=== PATIENT | female | born 1960 | race Caucasian/White ===

== ENCOUNTER → 2021-06-16 | Day surgery (SDC) | payer MEDICARE ==
[2021-06-16] VITALS (10 sets, daily range): BP systolic 150–171; BP diastolic 84–101
[~2021-06-16] VITALS: Ht 180.3 cm; Wt 68.5 kg
[~2021-06-16] MED LIST: ASPI-667 PO; ATOR20TA PO; CYCL10TA2 PO; FLUT1BLS3 INH; GABA100C7 PO; HEPARIN ONE; LOSA100T14 PO; MELO15TA24 PO; NS 1000ML 1,000 ML IV SCH; PHENERGAN PO ONE; SUBLIMAZE ONE; VALIUM PO ONE; VERSED ONE; XYLOCAINE ONE
--- NOTE | 2021-06-16 08:08 | DIREP ---
PROCEDURE:CHEST 2 VIEWS COMPARISON:None. INDICATIONS:PRE-OP FINDINGS: LUNGS/PLEURA:There is pulmonary hyperinflation consistent with underlying COPD. No focal consolidation. No pneumothorax. No effusions. VASCULATURE:Normal. Unremarkable pulmonary vasculature. CARDIAC:Normal. No cardiac silhouette abnormality or cardiomegaly. MEDIASTINUM:Normal. No visible mass or adenopathy. BONES:Normal. No fracture or visible bony lesion. OTHER:Negative. CONCLUSION:Lungs appear hyperinflated. No acute process is identified. Dictated by: Alberto Grant MD on 06/16/2021 at 08:06 AM
--- NOTE | 2021-06-16 10:30 | [facility] ---
DATE OF SERVICE: 06/16/2021 DICTATOR NAME: Don Wellington MD HEART CATHETERIZATION REPORT IDENTIFICATION: A 60-year-old female. PRECATHETERIZATION DIAGNOSES: Abnormal myocardial perfusion scan, chronic obstructive pulmonary disease, hypertension, hypertensive heart disease, left ventricular systolic dysfunction, 35-40% ejection fraction, mitral regurgitation, assess for coronary artery disease. POSTCATHETERIZATION DIAGNOSES: Left main is patent, type 3 left anterior descending with a proximal 30% luminal irregularity. The left anterior descending wraps around the apex and is a very large vessel. No flow obstruction is documented. Circumflex small vessel appears to be patent. Codominant right coronary artery and the mid right coronary artery eccentric 50-55% lesion, non-flow obstructive. Distal vessel with good RUSSELL 3 flow. Left ventricle is mildly dilated with good wall contractility, no mitral regurgitation, ejection fraction of 50%. ANESTHESIA: 2% lidocaine. PREOPERATIVE MEDICATIONS: Phenergan 50 mg p.o., Valium 2.5 mg p.o., Versed 2 mg IV, fentanyl 25 mcg IV. ANTICOAGULATION: Heparin 2000 units intra-arterially, 2000 units in the flush solution, 1000 units in the dye solution. DYE USED: Omnipaque. Total amount is 70 mL. CATHETERS: [id number], JR4 6-Emirati, 6 Emirati angled pigtail catheter. ARTERIAL TIME: 7 minutes. FLUOROSCOPY TIME: 1.8 minutes. PROCEDURES: Left heart catheterization, bilateral selective coronary arteriography, left ventriculography by right femoral Kaylene approach. DESCRIPTION OF PROCEDURE: Under local anesthesia, right femoral artery was punctured percutaneously by arterial needle, guide wire passed in right femoral artery, 6-Emirati Cordis sheath introduced, side port of the sheath used for femoral arterial pressure monitoring. Sheath anchored with suture. Left Kaylene catheter introduced over guide wire into ascending aorta left coronary artery cannulated and left coronary angiography performed in UZBEK and RYAN projections with craniocaudal applications to visualize all branches. Left catheter exchanged for right coronary catheter and right coronary angiography performed in UZBEK and RYAN. This catheter exchanged for 6-Emirati pigtail catheter and catheter crossed the aortic valve and left ventricular LVEDP measured and LV gram performed in 30 degrees RYAN view with 30 mL Omnipaque dye and panning of descending aorta attempted. Patient tolerated procedure well. No complications of procedure. Angio-Seal deployed for hemostasis. LVEDP is about 8-10 mm, LV pressure is 158/10. Femoral artery pressure 148/84 with a mean of 100. No gradient across the aorta on pullback of the central catheter. FINAL CONCLUSION: Non-flow obstructive coronary artery disease with 30% luminal irregularity in the LAD with mid RCA 50-55% stenosis and intact LV systolic function and dominant LAD and RCA. At the present time, risk factor modification and optimization of medical therapy. Don Wellington MD DR: RANI TID: [id number] RECEIPT: [id number]
== END | disposition home or self-care (01) ==
LOC: SURG 07:48
PROVIDERS: ATTEND Specialist
DX: I25.110 Atherosclerotic heart disease of native coronary artery with unstable angina pectoris (principal); I11.0 Hypertensive heart disease with heart failure; I50.32 Chronic diastolic (congestive) heart failure; I34.0 Nonrheumatic mitral (valve) insufficiency; J44.9 Chronic obstructive pulmonary disease, unspecified; I73.9 Peripheral vascular disease, unspecified; F17.210 Nicotine dependence, cigarettes, uncomplicated; Z79.01 Long term (current) use of anticoagulants; Z79.899 Other long term (current) drug therapy; Z99.81 Dependence on supplemental oxygen; Z82.49 Family history of ischemic heart disease and other diseases of the circulatory system; Z80.9 Family history of malignant neoplasm, unspecified; Z98.890 Other specified postprocedural states; Z90.710 Acquired absence of both cervix and uterus
CPT/HCPCS: 36415; 71046; 85610; 85730; 93458; 99152; C1760; C1894 ×3; J1644 ×2; J2001; J2250; J3010; Q9967

== ENCOUNTER → 2021-10-12 | Outpatient (CLI) | payer MEDICARE ==
[~2021-10-12] MED LIST changes: +CYCL10TA19 PO; -CYCL10TA2 PO; -HEPARIN ONE; -NS 1000ML 1,000 ML IV SCH; -PHENERGAN PO ONE; -SUBLIMAZE ONE; -VALIUM PO ONE; -VERSED ONE; -XYLOCAINE ONE
[2021-10-12 14:09] LABS: BASOPHIL # 0.1 10^3/uL (0.0-0.1); BASOPHIL % 0.7 % (0.0-0.2); EOSINOPHIL # 0.3 10^3/uL (0.0-0.2); EOSINOPHIL % 4.7 % (0.0-5.0); LYMPHOCYTES # 1.57 10^3/uL1 (1.0-4.8); LYMPHOCYTES % 23.1 % (24.0-44.0); MEAN CORP HGB 29.8 pg (26-34); MONOCYTES # 0.7 10^3/uL (0.3-0.8); MONOCYTES % 10.9 % (5.0-12.0); NEUTROPHIL # 4.1 10^3/uL (1.8-7.7); NEUTROPHILS % 60.5 % (41.0-85.0); PLATELET COUNT 339 10^3/uL (150-400); RED CELL DISTRIBUTION WIDTH 11.7 % (11.5-14.5)
[2021-10-12 14:59] LABS: CARBON DIOXIDE 30.6 mmol/L (20.0-32)
== END | disposition home or self-care (01) ==
LOC: LAB 13:31
PROVIDERS: ATTEND Specialist
DX: I10 Essential (primary) hypertension (principal); R79.89 Other specified abnormal findings of blood chemistry; E78.00 Pure hypercholesterolemia, unspecified
CPT/HCPCS: 36415; 80053; 82728; 83880; 84436; 84439; 84443; 84480; 85025; 86140